=== PATIENT | male | born 1995 | race Two or more races ===

== ENCOUNTER 2025-06-14 14:20 | Emergency (ER) | payer BC, SELFPAY ==
[2025-06-14 14:21] VITALS: BMI 29.9
[2025-06-14 15:13] VITALS: BP 148/78; PULSE 80; RESP 20; TEMP 36.8; O2SAT 97
--- NOTE | 2025-06-14 15:23 | PD.EDPSYCH ---
ED Psych RME/HPI General Chief Complaint: Anxiety Stated Complaint: ANXIETY, HX OF DELLUSIONS, DENIES SI/HI Time Seen by Provider: 06/14/25 14:37 Arrival date/time: 06/14/25 14:20 Limitations: no limitations RME / HPI RME / HPI Narrative: DR. BRENNRE MAIN ED EVALUATION: 30-year-old male with medical history of anxiety taking Buspirone presents to the Emergency Department with complaint of delusions and auditory hallucinations. He reports hearing voices and believes he may be having a psychotic break. He states he has been under significant stress related to conflicts with the mother of his daughter. He has no primary care provider. Police have been called twice regarding his behavior but he was not arrested. He denies suicidal ideation or homicidal ideation. Related Data Home Medications ?Medication ?Instructions ?Recorded ?Confirmed Buspirone * (BUSPAR *) 7.5 mg PO BID #0 tabs 01/23/17 Previous Rx's ?Medication ?Instructions ?Recorded haloperidol 5 mg tablet 5 mg PO BID #30 tabs 06/14/25 lorazepam 0.5 mg tablet (Ativan) 0.5 mg PO BID PRN anxiety #20 tabs 06/14/25 Allergies Allergy/AdvReac Type Severity Reaction Status Date / Time NKA* Allergy Uncoded 06/14/25 14:23 Review of Systems Review of Systems Systems Reviewed: All systems reviewed, normal except as documented Past Medical History Past Medical History PSYCHO/SOCIAL: Positive Anxiety (takes Buspirone) Social History SMOKING STATUS: Current some day smoker ED Exam General Limitations: Present no limitations General appearance: Present alert and in no apparent distress Head Head exam: Present atraumatic, normocephalic and normal inspection Eye Eye exam: Present normal appearance, PERRL and EOMI ENT ENT exam: Present normal exam, normal oropharynx and mucous membranes moist Neck Neck exam: Present normal inspection, full ROM and trachea midline Chest Chest inspection: Present normal inspection and symmetric chest wall rise Respiratory Respiratory exam: Present normal lung sounds bilaterally Cardiovascular Cardiovascular exam: Present regular rate, normal rhythm and normal heart sounds Abdominal Exam Abdominal exam: Present soft and normal bowel sounds Extremities Exam Extremities exam: Present normal inspection and full ROM Back Exam Back exam: Present normal inspection and full ROM Neurological Exam Neurological exam: Present alert, oriented X3 and CN II-XII intact Psychiatric Psychiatric exam: Present other (Pressured speech and mild flight of ideas; reports auditory hallucinations; thought content delusional; no suicidal ideation or homicidal ideation.) Skin Skin exam: Present warm, dry, intact and normal color Course Quality Measures none Vital Signs Vital signs: Vital Signs Temperature 98.3 F 06/14/25 15:13 Pulse Rate 80 06/14/25 15:13 Respiratory Rate 20 06/14/25 15:13 Blood Pressure 148/78 H 06/14/25 15:13 Pulse Oximetry (%) 97 06/14/25 15:13 Oxygen Delivery Method Room Air 06/14/25 15:13 Psych MDM Narrative MDM Narrative:: I, Elizabeth Vasquez, am scribing for and in the presence of Dr. Brenner. 30-year-old male with delusions and auditory hallucinations under significant stress. Exam notable for pressured speech and mild flight of ideas. Differential diagnoses include acute psychosis, anxiety related decompensation, and substance induced psychosis. 1525: Patient will be discharged with acute anxiety and auditory hallucinations. Patient data External records reviewed:: [facility] previous records Clinical information provided by:: patient Social determinants that could affect healthcare access:: mental health Patient has the following chronic illnesses:: History of anxiety taking Buspirone. How is presenting disease/condition affected by chronic disease/condition?: exacerbated by Evaluation data The following diagnostics were reviewed and interpreted by me:: other (specify) (none) Lab and/or radiology exams considered but not ordered:: none Interpretation Summary: See MDM narrative above. Medications / Prescriptions Medications or Prescriptions considered but not ordered:: none Medication administrations:: none Consultations Consultation(s) initiated? (list below): No Diagnosis Psych Differential Diagnosis: other (acute psychosis, anxiety related decompensation, and substance induced psychosis) Most likely diagnosis given after review of the tests above:: Acute anxiety Auditory hallucinations. Admission Indicated Admission indicated?: not indicated Admission Request Was there a request for admission?: No Disposition Plan Disposition Plan: Discharge Discharge Attestation Discharge Attestation: The patient and all family members were given an opportunity to ask questions and understood the discharge instructions. Discharge instructions specifically effects, indications for sooner follow up or return to the emergency department, and the expected course of current diagnosis. Patient condition: Stable Discharge Plan Plan Patient Disposition: HOME (Self Care) Patient condition on transfer: Stable Prescriptions/Referrals Prescriptions/Med Rec: New haloperidol 5 mg tablet 5 mg PO BID Qty: 30 0RF lorazepam [Ativan] 0.5 mg tablet 0.5 mg PO BID MDD 2 tabs PRN (Reason: anxiety) Qty: 20 0RF No Action Buspirone * (BUSPAR *) 7.5 MG tablet 7.5 mg PO BID Qty: 0 Problem List Clinical Impression: Acute anxiety, Hallucination, auditory Patient/Caregiver Discharge Instructions Discharge Activity: activity as tolerated Education Materials: Understanding Anxiety Disorders Additional Instructions: Follow-up with your clinic on Monday. Please get a referral to see mental health counseling and possible referral to a psychologist or psychiatrist. Print Language: Thai Stand Alone Forms: No Award Info., Patient Portal Info Letter
== END 2025-06-14 15:34 | disposition home or self-care (01) ==
LOC: SERX 16:37
PROVIDERS: Emergency Provider Family Medicine
DX: F41.9 Anxiety disorder, unspecified (principal); R44.0 Auditory hallucinations
CPT/HCPCS: 99281